=== PATIENT | male | born 2000 | race Hispanic/Latino ===

== ENCOUNTER 2025-04-27 23:54 | Emergency (ER) | payer SELFPAY ==
[~2025-04-27] VITALS: Ht 172.7 cm; Wt 108.9 kg
[2025-04-28] MEDS: IBUPROFEN 600 MG TAB PO STA (00:46)
[2025-04-28 01:50] VITALS: PULSE 84; RESP 19; TEMP 98.4; O2SAT 98
== END 2025-04-28 01:53 | disposition home or self-care (01) ==
LOC: ER 04-28 00:24
DX: R07.89 Other chest pain (principal); M79.18 Myalgia, other site; M79.652 Pain in left thigh; M79.651 Pain in right thigh; V43.52XA Car driver injured in collision with other type car in traffic accident, initial encounter; Y92.488 Other paved roadways as the place of occurrence of the external cause
CPT/HCPCS: 71046; 99282